=== PATIENT | female | born 1975 | race American Indian/Alaskan Native ===

== ENCOUNTER 2018-10-24 06:23 | Emergency (ER) | payer OTHER ==
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
== END 2018-10-24 08:29 | disposition home or self-care (01) ==
LOC: ED 06:23
CPT/HCPCS: 99282